=== PATIENT | female | born 1990 | race Hispanic/Latino ===

== ENCOUNTER → 2017-03-31 | Emergency (ER) | payer OTHER ==
[~2017-03-31] VITALS: Ht 149.9 cm; Wt 68.0 kg
[~2017-03-31] MED LIST: ALBUTEROL0.63 MG/3; PREDNISONE10 MG PO; SYMBICORT 16010.2 GM; TRIAMCINOLONE A15 G1; XYZAL5 MG PO
== END | disposition home or self-care (01) ==
LOC: FSED 19:13
DX: R05 Cough (principal); J00 Acute nasopharyngitis [common cold]; F41.9 Anxiety disorder, unspecified
CPT/HCPCS: 80053; 85025; 93005; 99282

== ENCOUNTER 2017-11-01 10:21 | Emergency (ER) | payer OTHER ==
[~2017-11-01] VITALS: Ht 149.9 cm; Wt 68.0 kg
== END 2017-11-01 11:45 | disposition home or self-care (01) ==
LOC: FSED 10:21
DX: R30.0 Dysuria (principal); R10.9 Unspecified abdominal pain; N30.91 Cystitis, unspecified with hematuria; N39.0 Urinary tract infection, site not specified
CPT/HCPCS: 80307; 81003; 99283